=== PATIENT | female | born 1970 | race Caucasian/White ===

== ENCOUNTER 2022-02-08 14:22 | Emergency (ER) | payer OTHER ==
[2022-02-08 15:24] LABS: HEMOGLOBIN 15.1 gm/dl (12.3-15.3); RED BLOOD COUNT 5.2 M/UL (4.00-5.10); WHITE BLOOD COUNT 8.1 K/UL (4.5-11.0)
[2022-02-08 16:01] LABS: BUN/CREATININE RATIO 14 (0-10)
== END 2022-02-08 19:08 | disposition home or self-care (01) ==
LOC: ER1 14:22
PROVIDERS: Emergency Medicine
DX: R20.2 Paresthesia of skin (principal); R42 Dizziness and giddiness; R07.9 Chest pain, unspecified; R20.0 Anesthesia of skin; Z90.710 Acquired absence of both cervix and uterus; Z88.0 Allergy status to penicillin
CPT/HCPCS: 70450; 71045; 72125; 80053; 82550; 82553; 84484; 85025; 99284